=== PATIENT | male | born 1970 | race Caucasian/White ===

== ENCOUNTER 2021-11-07 07:46 | Outpatient (CLI) | payer OTHER | END 2021-11-07 07:47 | disposition home or self-care (01) | LOC: CSHULT 07:46 | PROVIDERS: ATTEND Family Medicine | DX: R10.13 Epigastric pain (principal); K76.0 Fatty (change of) liver, not elsewhere classified; K82.4 Cholesterolosis of gallbladder | CPT/HCPCS: 76700 ==